=== PATIENT | female | born 1955 | race Caucasian/White ===

== ENCOUNTER → 2016-07-17 | Outpatient (CLI) | payer BC ==
[~2016-07-17] MED LIST: ACET325T51 PO; ALBU18HF2 ORAL INH; ALBU2.5V7 AEROSOL; ALBU2.5V7 INH; AMIO200T2 PO; ASPI-914 PO; AZIT250T6 PO; CLOT10TR PO; DABI150C PO; ERGO500044 PO; EVOL140S SQ; EZET10TA PO; FENO145T PO; GUAI600T PO; IPRA3AMP AEROSOL; ISOS120T10 PO; LEVO100T4 PO; LEVO300T4 PO; METO25TA6 PO; MOME13HF4 INH; NITR0.4T39 SL; POTA-81 PO; PRED20TA PO; SERT100T PO; TORS20TA4 PO
[2016-07-17 08:15] LABS: PROBNP 2020 PG/ML (0-175)
== END ==
LOC: LABN 07:50
PROVIDERS: ATTEND Family Medicine
DX: I50.32 Chronic diastolic (congestive) heart failure (principal)
CPT/HCPCS: 83880; 84484